=== PATIENT | female | born 1960 | race Caucasian/White ===

== ENCOUNTER → 2018-01-13 | Outpatient (CLI) | payer OTHER ==
[~2018-01-13] MED LIST: ARMOUR THYROID; DIA5 PO; ESTR-26 PO; HYDR-4309 PO; IBUP800T37 PO; LEVO50TA80 PO; LEVO88TA43 PO; LOR5/325 PO; OXYC-373 PO; OXYC-865 PO
--- NOTE | 2018-01-13 12:04 | RADIOLOGY IMAGING REPORT ---
[place] [facility] [place] NAME: ADIEL HIGHTOWER : [id number] MR: [id number] V: [id number] EXAM DATE: ORDERING PHYSICIAN: DAVEY MOORE TECHNOLOGIST: Pastora Mcmullen PROCEDURE:BILATERAL DIGITAL SCREENING MAMMOGRAM WITH CAD ASSISTED INTERPRETATION & 3D TOMOSYNTHESIS COMPARISON:Prior mammograms 04/19/16, 10/17/13, 10/11/12. INDICATIONS:SCREENING FINDINGS: Moderately dense fibroglandular tissue is seen throughout the breasts. The parenchymal pattern has remained stable allowing for difference in mammographic technique & patient positioning. There is no evidence of malignant appearing mass, malignant appearing calcifications or other secondary sign of malignancy in either breast. DIAGNOSTIC CATEGORY 1--NEGATIVE. RECOMMENDATIONS: ROUTINE MAMMOGRAM AND CLINICAL EVALUATION. IMPRESSION: BIRADS 1: Negative No significant abnormality is seen. Dictated by: Elizabeth Mackay M.D. on 01/13/2018 at 10:05 Transcribed by: CANDI on 01/13/2018 at 11:01 Approved by: Elizabeth Mackay M.D. on 01/13/2018 at 12:03 [facility]
== END ==
LOC: MAMO 03:49
PROVIDERS: ATTEND Obstetrics & Gynecology
DX: Z12.31 Encounter for screening mammogram for malignant neoplasm of breast (principal)
CPT/HCPCS: 77063; 77067

== ENCOUNTER → 2019-02-15 | Outpatient (CLI) | payer OTHER ==
[~2019-02-15] MED LIST changes: +ATOR10TA24 PO; -HYDR-4309 PO; +HYDR-653 PO; +LEVO125T77 PO; +LOSA25TA57 PO
--- NOTE | 2019-02-15 16:18 | RADIOLOGY IMAGING REPORT ---
FACILITY: [facility] PATIENT NAME: ADIEL HIGHTOWER : [id number] MR: [id number] V: [id number] EXAM DATE: [id number] ORDERING PHYSICIAN: ISABEL MARLEY TECHNOLOGIST: Pastora Mcmullen PROCEDURE: BILATERAL DIGITAL SCREENING MAMMOGRAM WITH CAD ASSISTED INTERPRETATION & 3D TOMOSYNTHESIS REASON FOR STUDY: Screening. FAMILY HISTORY OF BREAST CANCER: None. COMPARISON: Prior mammograms 01/13/2018 back to 10/11/2012. VIEWS OBTAINED: 2D & 3D full field CC & MLO. BREAST DENSITY: There are scattered areas of fibroglandular density. MAMMOGRAM FINDINGS: Stable appearing breast parenchymal pattern. No mass lesions, architectural distortions, or any clusters of suspicious microcalcifications. No interval change when compared to the previous study. IMPRESSION: BIRADS 1: Negative. DIAGNOSTIC CATEGORY 1--NEGATIVE. RECOMMENDATIONS: ROUTINE MAMMOGRAM AND CLINICAL EVALUATION IN 1 YEAR. Dictated by: Logan Smith M.D. on 02/15/2019 at 13:17 Transcribed by: CANDI on 02/15/2019 at 14:39 Approved by: Logan Smith M.D. on 02/15/2019 at 16:17 [facility]
== END ==
LOC: MAMO 01-15 00:48
PROVIDERS: ATTEND Obstetrics & Gynecology
DX: Z12.31 Encounter for screening mammogram for malignant neoplasm of breast (principal)
CPT/HCPCS: 77063; 77067